=== PATIENT | male | born 1935 | race Caucasian/White ===

== ENCOUNTER 2019-07-25 04:01 | Emergency (ER) | payer OTHER ==
[~2019-07-25] VITALS: Ht 177.8 cm; Wt 59.0 kg
[2019-07-25 05:17] LABS: Source, Urine Clean Catch
[2019-07-25 05:23] LABS: Bilirubin, Urine Neg (Neg); Blood, Urine 5+ (Neg); Glucose Qualitative, Urine Neg (Neg); Ketones, Urine Neg (Neg); Leukocyte Esterase, Urine 3+ (Neg); Nitrite, Urine Neg (Neg); Protein, Urine 3+ (Neg); Urobilinogen, Urine NORM (Normal)
[2019-07-25 05:37] LABS: Appearance, Urine Hazy (Clear); Color, Urine Yellow (P-Yellow)
[2019-07-25 05:38] LABS: Red Blood Cells, Urine TNTC /hpf (0-2); Squamous Epithelial Cells Not Seen /hpf (Few); White Blood Cells, Urine TNTC /hpf (0-5)
[2019-07-25 05:39] LABS: Bacteria Many /hpf
== END 2019-07-25 06:55 | disposition home or self-care (01) ==
LOC: ER 04:01
PROVIDERS: Emergency Medicine
DX: T83.098A Other mechanical complication of other urinary catheter, initial encounter (principal); Z85.46 Personal history of malignant neoplasm of prostate
CPT/HCPCS: 51702; 81001; 87086; 99283

== ENCOUNTER 2019-08-10 01:16 | Emergency (ER) | payer OTHER ==
[~2019-08-10] VITALS: Ht 167.6 cm; Wt 54.4 kg
[2019-08-10 03:10] LABS: Source, Urine Catheter
[2019-08-10 03:12] LABS: Appearance, Urine Cloudy (Clear); Bilirubin, Urine Neg (Neg); Blood, Urine 5+ (Neg); Color, Urine Amber (P-Yellow); Glucose Qualitative, Urine Neg (Neg); Ketones, Urine 1+ (Neg); Leukocyte Esterase, Urine 3+ (Neg); Nitrite, Urine Pos (Neg); Protein, Urine 3+ (Neg); Urobilinogen, Urine NORM (Normal)
[2019-08-10 03:22] LABS: Bacteria Many /hpf; Red Blood Cells, Urine 25-50 /hpf (0-2); Squamous Epithelial Cells Not Seen /hpf (Few); Triple Phosphate Crystals Few /hpf; White Blood Cells, Urine TNTC /hpf (0-5)
== END 2019-08-10 03:50 | disposition home or self-care (01) ==
LOC: ER 01:16
PROVIDERS: Emergency Medicine
DX: T83.091A Other mechanical complication of indwelling urethral catheter, initial encounter (principal)
CPT/HCPCS: 51702; 81001; 87077; 87086; 87186; 99283-25

== ENCOUNTER 2019-10-26 18:32 | Emergency (ER) | payer OTHER ==
[~2019-10-26] VITALS: Ht 175.3 cm; Wt 68.0 kg
[~2019-10-26 18:32] MED LIST: Cipro500 MG PO
[2019-10-26 19:11] LABS: Source, Urine Catheter
[2019-10-26 19:16] LABS: Bilirubin, Urine Neg (Neg); Blood, Urine 5+ (Neg); Glucose Qualitative, Urine Neg (Neg); Ketones, Urine Neg (Neg); Leukocyte Esterase, Urine 3+ (Neg); Nitrite, Urine Neg (Neg); Protein, Urine 3+ (Neg); Urobilinogen, Urine NORM (Normal)
[2019-10-26 19:20] LABS: Appearance, Urine Cloudy (Clear); Color, Urine Yellow (P-Yellow)
[2019-10-26 19:22] LABS: Red Blood Cells, Urine 50-100 /hpf (0-2); White Blood Cells, Urine 50-100 /hpf (0-5)
[2019-10-26 19:23] LABS: Amorphous Light (0-Heavy); Bacteria Mod /hpf; Squamous Epithelial Cells Not Seen /hpf (Few); Triple Phosphate Crystals Rare /hpf
[2019-10-26] MEDS ORDERED: CEFP200 PO (19:49)
== END 2019-10-26 20:20 | disposition home or self-care (01) ==
LOC: ER 18:32
PROVIDERS: Emergency Medicine
DX: N39.0 Urinary tract infection, site not specified (principal); R33.9 Retention of urine, unspecified; Z85.46 Personal history of malignant neoplasm of prostate
CPT/HCPCS: 51702; 51798; 81001; 87086; 99283-25; A9270-GY